=== PATIENT | male | born 1945 | race Caucasian/White ===

== ENCOUNTER 2020-09-07 16:51 | Emergency (ER) | payer OTHER ==
[2020-09-07 17:43] VITALS: BMI 20.2
[2020-09-07 21:20] LABS: BASO % 0.2 % (0-2.0); EOS % 0.2 % (0-4.5); HEMATOCRIT 32.9 % (35.4-49); HEMOGLOBIN 10.5 GM/dL (11.7-16.9); LYMPH % 17.8 % (8-40); MCH 26.3 pg (25.7-33.7); MEAN CELL VOLUME 82.1 fl (80-96); MONO % 6.4 % (3.8-10.2); NEUT % 75.4 % (42.8-82.8); PLATELET COUNT 196 K/MM3 (134-434); RBC 4.01 M/mm3 (4.00-5.60); RDW 20.4 % (11.9-15.9); WHITE BLOOD COUNT 8.1 K/mm3 (4.0-10.0)
[2020-09-07 21:28] LABS: EPI CELLS 8 /uL (0-25.1); HYALINE CASTS 4 /uL (0-3.1); URINE APPEARANCE CLEAR; URINE BACTERIA 62 /uL (0-1359); URINE BILIRUBIN NEGATIVE (NEGATIVE); URINE COLOR YELLOW; URINE GLUCOSE (UA) NEGATIVE (NEGATIVE); URINE KETONE TRACE (NEGATIVE); URINE LEUK ESTERASE NEGATIVE (NEGATIVE); URINE NITRITE NEGATIVE (NEGATIVE); URINE PROTEIN 1+ (NEGATIVE); URINE RBC 162 /uL (0-23.9); URINE WBC 8 /uL (0-25.8)
[2020-09-07 21:44] LABS: CHLORIDE 107 mmol/L (98-107); POTASSIUM 3.5 mmol/L (3.5-5.1); SODIUM 142 mmol/L (136-145)
[2020-09-07 21:45] LABS: CALCIUM 9.5 mg/dL (8.5-10.1)
[2020-09-07 21:46] LABS: ANION GAP 6 MMOL/L (8-16); BLOOD UREA NITROGEN 14.3 mg/dL (7-18); CO2 29 mmol/L (21-32); GLUCOSE,RANDOM 122 mg/dL (74-106)
[2020-09-07 21:49] LABS: SGOT/AST 78 U/L (15-37); SGPT/ALT 25 U/L (13-61)
[2020-09-07 21:50] LABS: CREATININE 0.7 mg/dL (0.55-1.3)
[2020-09-07 21:51] LABS: BILIRUBIN,TOTAL 0.6 mg/dL (0.2-1); TOT PROT 7.7 g/dl (6.4-8.2)
[2020-09-07 21:54] LABS: ALK PHOS > 1000 U/L (45-117)
[2020-09-07 22:08] VITALS: BP 142/71; PULSE 87; TEMP 98
== END 2020-09-07 22:08 | disposition home or self-care (01) ==
LOC: JER 16:51
DX: R33.9 Retention of urine, unspecified (principal)
CPT/HCPCS: 36415; 80053; 81003; 85025; 87086; 99283-25